=== PATIENT | female | born 1950 | race Caucasian/White ===

== ENCOUNTER 2019-12-06 13:00 | Outpatient (RCR) | payer MEDICARE, SELFPAY ==
[2019-05-01 10:20] VITALS: BMI 37.2
--- NOTE | 2019-09-10 11:59 | HP.PTEVAL ---
Patient's Visit Information KIRIT WILSON is a 68 year old F referred to Physical Therapy by SILVERIO Jenkins with a diagnosis of spondylolisthesis L3L4. Date of Evaluation: 09/10/19 Physical Therapist: Ziggy Pardo, DPT, OCS, CSCS - Visit Plan Frequency: 2-3x /Week Duration: 4-6 Weeks Plan: 2-3x/week fro 4-6 weeks for: NS strengthening of core. rollout and stretch quads and hip flexors and progress to HEP. LB ROM and postural ex. Progress to home gym as able as patient is a member. - Subjective Subjective: Intermittent problems with back. Had L45 fused 2011. Pain has been more frequently in L buttock adn leg lately. Has to stretch before walking. Returned to Dr. Trinity Meza's(surgeons) office. Said the vertebrae above is messed and needs to start with therapy. Gets this pain daily multiple times. Worse standing froma sitting position. Sits in recliner at home. Is comfortable sitting for the most part. Stadning and walking are OK right now. Pain is 8/10 getting up from chair, sitting is OK 0/10. Sleeping is not interrupted, Lying down can be uncomfortable at first on side btu sleeps quickly. Not employed. Spends day putzing around house , sewing, crossstitch. 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 Works out at 3x/week and doing machines and stretches. Basic ADLs are getting done but stadning too long can be painful at [employer] counter. Sitting feels better. - Pain LB and L leg Pain Intensity (Out of 10): 0 Pain Intensity Range: 0, 8 - Objective Walks I and normal, good balance. Trasnfers I without evidence of pain today. steps reciprocal without rail. Bed and chair trasnfers I. LB AROM ext mod limited, flexion mod limited, SB max limited, no pain today. reflexes 2/3 patella and achilles. Sensation WNL to gross light touch in LE. Strength LE 4- hips, 4 knees, 4+ ankles withotu pain- slump and - SLR. quads and hip flexors max tight limiting hip ext B to 4 degrees. L quad tight vs R. Knees are sore on steps from OA - Goals Goal 1:: Pt feel 75% better with 1-2/10 pain at worst. Goal Time Frame: 4-6 Weeks Goal 2:: Pt stadn at counter for chores without increased pain. Goal Time Frame: 4-6 Weeks Goal 3:: I appropr HEP to help manage condition. Goal Time Frame: 4-6 Weeks Goal 4:: Oswestry LB <15% disability. Goal Time Frame: 4-6 Weeks - Rehabilitation Potential Physical Therapy Diagnosis: spondylolisthesis degenerative changes in LB causing pain. Rehabilitation Potential: Good - Anticipated Interventions Patient/Client Instruction: Educate patient on: Condition, Plan of Care For the Purpose of:: To decrease pain, To improve muscle performance and motor function, To increase tolerance to activity/condition/position, To improve ability of physical actions for home/community/work/leisure Therapeutic Exercise to Include: Strength training, Postural training, Flexibilty training, Passive ROM, Active ROM, Dynamic Lumbar Stabilization For the Purpose of:: To decrease pain, To improve nutrient delivery to tissue, To improve muscle performance and motor function, To increase tolerance to activity/condition/position, To improve ability of physical actions for home/community/work/leisure Manual Therapy Techniques to Include: Mobilization Comment: flexion mobs For the Purpose of:: To decrease pain, To increase ROM Thank you for the opportunity to evaluate your patient. For Medicare and Medicare HMO plans, please review the plan of care and approve it. It will need to be FAXED BACK to us at [phone] for Medicare purposes. For Medicare only, by signing this I certify the plan of care. Please let me know if there are questions or concerns regarding this plan of care. Physician Signature: Date:
--- NOTE | 2019-10-02 10:49 | HP.PTREVAL_ITS ---
Ele Shaw, [employer], It has been my pleasure to treat KIRIT WILSON over the last 8 visits for spondylolisthesis L3L4. Please see the progress note below for an update on the physical therapy plan of care! Subjective: Better somewhat. Times with no pain especially in am and when at rest. Walking and going to store can cause it to shoot in butt and leg. Attempts NS position whcih gives some relief. Sleep is good most nights. Frequency is less when it happens and can do a little more. HEP: pelvic tilt, LE rot NWB, DKC. 2x/day Objective/Function: pT PAINFREE AT REST, HAS SLIGHT DISCOMFORT WITH l sb. eXT MOD LIMITED BUT PAINFREE. Flexiona dn R SB Painfree. Hurts after short walk and steps today. Still not focussing on neutral spine in standing/walking adn needs more focus on this which was reviewed with patient today. Continue is appropriate with fair prognosis Plan Plan: 2x/week x 2-3 weeks for ... 1. please give core stabs via HEP, please progress to gym rows, pulldowns, ab, back ext and leg press to add to current program pt was doing prior to back pain. Pt can do her gym workout I prior to or after therapy. PLEASE FOCUS NEUTRAL SPINE THROUGHOUT SESSION IN STANDING. Goals Goal 1:: Pt feel 75% better with 1-2/10 pain at worst. Goal Time Frame: 4-6 Weeks Goal Progress: Progressing Goal 2:: Pt stadn at counter for chores without increased pain. Goal Time Frame: 4-6 Weeks Goal Progress: Slow progression. Goal 3:: I appropr HEP to help manage condition. Goal Time Frame: 4-6 Weeks Goal Progress: Progressing Goal 4:: Oswestry LB <15% disability. Goal Time Frame: 4-6 Weeks Goal Progress: Not Progressing Anticipated Interventions Patient/Client Instruction: Educate patient on: Condition, Plan of Care For the Purpose of:: To decrease pain, To improve muscle performance and motor function, To increase tolerance to activity/condition/position, To improve ability of physical actions for home/community/work/leisure Therapeutic Exercise to Include: Strength training, Postural training, Flexibilty training, Passive ROM, Active ROM, Dynamic Lumbar Stabilization For the Purpose of:: To decrease pain, To improve nutrient delivery to tissue, To improve muscle performance and motor function, To increase tolerance to activity/condition/position, To improve ability of physical actions for home/community/work/leisure Manual Therapy Techniques to Include: Mobilization Comment: flexion mobs For the Purpose of:: To decrease pain, To increase ROM Please do not hesitate to contact me at [phone] by phone or if you have questions or concerns regarding this new plan of care! Sincerely, Ziggy Pardo, DPT, OCS, CSCS
--- NOTE | 2019-10-25 12:22 | HP.PTREVAL ---
Ele Shaw, RANJANA-C, It has been my pleasure to treat KIRIT WILSON over the last 13 visits for spondylolisthesis L3L4. Please see the progress note below for an update on the physical therapy plan of care! Subjective: Sporadic pain up to 7/10. Housework and raking makes her worse. Twisting may bother her. Objective/Function: Pt no better than last week and cannot get in gym regularly due to closure. Has been doing HEP but not as helpful. Appropriate for trial of aquatic therapy for strengtha dn stretch to work to I.Fair prognosis for similar pool goals. Plan Plan: 2x/week x 4 weeks for AT to work on postural, core/NS adn LE sterngtha nd LB ROM to I as member when complete. Pt may do gym ex after pool therapy if desired and makes herself known. Goals Goal 1:: Pt feel 75% better with 1-2/10 pain at worst. Goal Time Frame: 4-6 Weeks Goal Progress: appropriate Goal 2:: Pt stadn at counter for chores without increased pain. Goal Time Frame: 4-6 Weeks Goal Progress: Slow progression.,a pprop Goal 3:: I appropr HEP to help manage condition. Goal Time Frame: 4-6 Weeks Goal Progress: Not Progressing Goal 4:: Oswestry LB <15% disability. Goal Time Frame: 4-6 Weeks Goal Progress: Not Progressing,a pprop Anticipated Interventions Patient/Client Instruction: Educate patient on: Condition, Plan of Care For the Purpose of:: To decrease pain, To improve muscle performance and motor function, To increase tolerance to activity/condition/position, To improve ability of physical actions for home/community/work/leisure Therapeutic Exercise to Include: Strength training, Postural training, Flexibilty training, Passive ROM, Active ROM, Dynamic Lumbar Stabilization For the Purpose of:: To decrease pain, To improve nutrient delivery to tissue, To improve muscle performance and motor function, To increase tolerance to activity/condition/position, To improve ability of physical actions for home/community/work/leisure Manual Therapy Techniques to Include: Mobilization Comment: flexion mobs For the Purpose of:: To decrease pain, To increase ROM Please do not hesitate to contact me at [phone] by phone or if you have questions or concerns regarding this new plan of care! Sincerely, Ziggy Padro, DPT, OCS, CSCS
--- NOTE | 2019-11-21 12:52 | HP.PTREVAL_ITS ---
Ele Shaw, RANJANA-C, It has been my pleasure to treat KIRIT WILSON over the last 21 visits for spondylolisthesis L3L4. Please see the progress note below for an update on the physical therapy plan of care! Subjective: States she's feeling better now, like back to where she was before last week. Objective/Function: Reviewing hip ADD stretch and given as HEP today with instruction in eccentric muscle control. Discussing progresion to I pool program today with [employer] membership. Given her own paper program with review of everything on the sheet. Progressing concepts of neutral spine OUTSIDE of vertical today. Adding sit to stands/squats today with education on good body mechanics with hip hinge and neutral spine. Some difficulty keeping COM over TAJ - cues for appropriate hip hinge for wt distribution. Needing cues for greater abdominal bracing during DLP tasks d/t demo's of LB ext AND reports of increasing pain. Able to relieve this pain by the time pt exited the pool. Demo'ing reduced L glute med. stability with SLS wall push-ups - given LLE SLS glute bracing as HEP. Pt reported understanding. Plan Plan: *f/u with supervising PT directly following today's visit. Would recommend continued AT at this time, with set-back, but recent progress considered. Progressing to I pool program with [employer] membership. Has been given her own paper. *Add hip flexor/quad stretch. *f/u with new HEP Hip ADDuction tasks as well as L glute med strength. *2x/week x 4 weeks for AT to work on postural, core/NS adn LE sterngtha nd LB ROM to I as member when complete. Pt may do gym ex after pool therapy if desired and makes herself known. Goals Goal 1:: Pt feel 75% better with 1-2/10 pain at worst. Goal Time Frame: 4-6 Weeks Goal Progress: appropriate Goal 2:: Pt stadn at counter for chores without increased pain. Goal Time Frame: 4-6 Weeks Goal Progress: Slow progression.,a pprop Goal 3:: I appropr HEP to help manage condition. Goal Time Frame: 4-6 Weeks Goal Progress: Not Progressing Goal 4:: Oswestry LB <15% disability. Goal Time Frame: 4-6 Weeks Goal Progress: Not Progressing,a pprop Anticipated Interventions Patient/Client Instruction: Educate patient on: Condition, Plan of Care For the Purpose of:: To decrease pain, To improve muscle performance and motor function, To increase tolerance to activity/condition/position, To improve ability of physical actions for home/community/work/leisure Therapeutic Exercise to Include: Strength training, Postural training, F lexibilty training, Passive ROM, Active ROM, Dynamic Lumbar Stabilization For the Purpose of:: To decrease pain, To improve nutrient delivery to tissue, To improve muscle performance and motor function, To increase tolerance to activity/condition/position, To improve ability of physical actions for home/community/work/leisure Manual Therapy Techniques to Include: Mobilization Comment: flexion mobs For the Purpose of:: To decrease pain, To increase ROM Please do not hesitate to contact me at [phone] by phone or if you have questions or concerns regarding this new plan of care! Sincerely, Ziggy Pardo, DPT, OCS, CSCS
--- NOTE | 2019-12-06 14:08 | HP.PTDCSUM ---
It has been my pleasure to treat KIRIT WILSON referred by Ele Shaw, RANJANA-C, with the diagnosis of spondylolisthesis L3L4 for a total of 25 visit(s). Discharge Date: Please see the following information for a summary of their discharge status. Subjective: Did well for last two weeks. Did not get back to gym exercises. Plans to continue in pool I and eventually try land ex again when time allows for her. She is noticing times where she actually has no pain whcih is better. Can get rid of pain by adjusting position. usually worse only if she overdoes activity(hanging shutters for long time this past weekend). Was sore that night but hime ajith helped. LB and L leg Pain Intensity (Out of 10): 1 % Improvement: 75 Objective/Function: LB AROM without pain today, still mildly limited in ext but no pain. Walking normal. Overall feeling better adn managing symptoms well. 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 Goal 1:: Pt feel 75% better with 1-2/10 pain at worst. Goal Progress: Goal Met Goal 2:: Pt stadn at counter for chores without increased pain. Goal Progress: Progressing Goal 3:: I appropr HEP to help manage condition. Goal Progress: atul and gym and HEP Goal 4:: Oswestry LB <15% disability. Goal Progress: Not Progressing Goal 5:: I and compliant with gym ex to cotninue strength and NS positioning. Goal Progress: Goal Met Goal 6:: Resume babysit grandchildren without increased pain. Goal Progress: Goal Met Plan: d/c to HEP and pool ex. If there are questions or concerns regarding this patient's physical therapy, please feel free to call me at [phone]. Thank you for the referral of this patient. Sincerely, Ziggy Pardo, DPT, OCS, CSCS
== END 2019-12-06 19:00 | disposition home or self-care (01) ==
LOC: PT 13:00
PROVIDERS: PCP Internal Medicine; Referring Provider Nurse Practitioner Acute Care; Visit Provider Nurse Practitioner Acute Care
DX: M43.16 Spondylolisthesis, lumbar region (principal)
CPT/HCPCS: 97110; 97113; 97162; 97164; 97530

== ENCOUNTER 2020-08-12 14:04 | Outpatient (RCR) | payer MEDICARE, SELFPAY ==
[2019-05-01 10:20] VITALS: BMI 37.2
== END 2020-08-12 23:59 ==
LOC: IMMUN 14:04
PROVIDERS: PCP Internal Medicine; Referring Provider Family Medicine; Visit Provider Family Medicine
DX: Z23 Encounter for immunization (principal)
CPT/HCPCS: 0011A; 0012A; 91301

== ENCOUNTER 2021-08-17 10:43 | Outpatient (CLI) | payer MEDICARE, SELFPAY ==
--- NOTE | 2021-08-17 11:15 | BRBX_PTH ---
PATIENT: KIRIT WILSON LOC: [facility] U#:[id number] AGE/SX: 70/F ROOM: RE08/17/[address]: Dr. Hazel Hernandez MD : [id number] BED: DIS: 08/17/2021 SPEC #: [id number] RECD: 08/17/21 11:51 STATUS: CYNTHIA RE #: [id number] STEF: 08/17/21 11:[address]: Hazel Hernandez DEPT: SURGICAL PATHOLOGY RECD BY: Marissa Lucas ENTERED: 08/17/21 12:48 SP TYPE: BREAST BX OTHR DR: Dr. Maddy Bass MD Tissues: Right breast, NOS Procedures: Surgery Specimen Level IV HEADER OPERATION: Right breast stereotactic biopsy PRE-OP DIAGNOSIS: Right breast calcifications TISSUE SUBMITTED: Right breast core tissue ISCHEMIC TIME: 1 minute FIXATION TIME: 8 hours MICROSCOPIC DIAGNOSIS Right breast, stereotactic core biopsy: Fibrocystic change with associated microcalcifications. No evidence of malignancy. AM:duane 08/18/2021 MICROSCOPIC DESCRIPTION Slides are reviewed. GROSS DESCRIPTION Received in fixative is one container labeled with the patient's name and designated right breast. The specimen consists of multiple elongated fragments of yap-yellow fibroadipose tissue that in aggregate measure 5 x 3 x 0.2 cm. The entire specimen is submitted in two cassettes. / SJ:duane 08/17/2021 TC:5 CPT: 82358
--- NOTE | 2021-08-17 13:12 | OP.PCM_ITS ---
Report of Operation Date of Procedure: 08/17/21 Pre-Operative Diagnosis: abnormal calcifications on right breast mammograms Post-Operative Diagnosis: same Surgery/Procedure Performed:: right stereotactic breast biopsy Surgeon: Hazel Hernandez Type of Anesthesia: Local Specimen's removed: right breast tissue Estimated Blood Loss (mL): minimal Description of Procedure: After informed consent was given, the patient was brought into the Breast Biopsy suite. Appropriate time out protocol was followed. The patient was placed in the prone position on the stereotactic biopsy table. The patient?s right breast was then placed in the opening at the head of the biopsy table. A senior capital markets specialist compression mammogram was then obtained in the CC view. The suspicious radiological lesion was thus identified. Stereo pictures of the lesion were then taken for XYZ coordinates. The Mammotome biopsy stylus was then positioned where it would be entering into the patient?s breast. The skin at this site was then cleansed with a surgical skin preparation. The skin and subcutaneous tissues at this site were then infiltrated with 1% xylocaine. A small skin incision was made with an 11 blade scalpel. The biopsy stylus was then positioned into the patient?s breast at the proper coordinates of depth. Using the Mammotome vacuum-assist device, several core samples of breast tissue were obtained. A specimen mammogram was the obtained. It revealed that the abnormal calcifications were within the specimen. I reviewed this personally and concluded that the tissue sampling was adequate. A hemostatic marker clip was then placed into the biopsy cavity and a senior capital markets specialist film revealed that it was properly deployed. The patient was then placed in the supine position and pressure was applied to the breast until no active bleeding was noted. A nylon suture was placed to reapproximate the skin. Sterile dressing was applied. A unilateral mammogram in the CC and MLO view were then taken which revealed that the marker clip was in the same area as the previous suspicious lesion. The patient tolerated the procedure well and was discharged from the Breast Biopsy suite in good condition. Complications none noted
== END 2021-08-17 23:59 | disposition home or self-care (01) ==
LOC: BIRAD 10:46
PROVIDERS: PCP Internal Medicine; Visit Provider Surgery
DX: R92.8 Other abnormal and inconclusive findings on diagnostic imaging of breast (principal)
CPT/HCPCS: 19081; 88305; J7050

== ENCOUNTER 2022-04-19 10:00 | Outpatient (RCR) | payer MEDICARE, SELFPAY ==
--- NOTE | 2022-03-07 14:18 | HP.PTEVAL ---
Patient's Visit Information KIRIT WILSON is a 71 year old F referred to Physical Therapy by Ele Shaw, RANJANA-Immanuel with a diagnosis of SPONDYLOLISTHESIS AT L3-4 LEVEL ,S/P LUMBAR FUSION. Date of Evaluation: 03/07/22 Physical Therapist: Hood Hackett, PT, Cert MDT, OCS - Visit Plan Frequency: 2x /Week Duration: 6 Weeks Plan: S/P LUMBAR FUSION ,NO BLT 6EEKS AN WEAN FROM BRACE 6WEEKS. PT INTERVETION DLS ,POSTURAL EX' ,LE FLEXABLITY ,HUNCTIONAL STRENGTHNEING AND PROGRESS TO AQUATICS LION AFTER 3 WEEKS - Subjective This 71 y/o female presents to physical therapy with spondylolisthesis at L3-L4 ,S/P lumbar fusion. Patient had lumbar radiculopathy left leg thus under s/p lateral minimal invasive left discectomy and L3-4 extreme lateral left interbody fusion with removal old hardware done Feb [address] Markus Meza at [facility] d/c home next day with lumbar brace . Brace on 6 weeks and remove when resting and no BLT 6 weeks and wean lumbar brace as lion. Start land PT for 3weeks then advance to Aquatic therapy. Patient had 1st surgery 2013 lumbar fusion . Symptoms worse in leg tried PT prior to MRI but showed stenosis and spondylolisthesis/stenosis. No injections. Patient has been doing Aquatic therapy on own prior to surgery. Patient continues to have aggravating factors with sitting , driving ,and extended walking and standing. Alleviating factors rest no MEDS. Bowel/bladder -. Coughing/sneezing-. Denies paresthesia/tingling. Patient does have left knee pain which had injection. Patient sleeping good . Patient goal return to prior level of function walking and ADLS'. SOCIAL: . VOCATION: retired - Pain Left Lower Extremity Pain Intensity (Out of 10): 4 Bilateral Back Pain Intensity (Out of 10): 2 - Objective POSTURE: mild forward posture. GAIT: reciprocal pattern mild forward posture slow miguel. SKIN: incision well approximate crusty distal. NEURO: denies paresthesia/tingling ,reflexes L3-4 ,L4-5 ,L5-S1 1/3 ,ANR. FLEXABLITY: hamstrings WFL. LUMBAR ROM: flexion min/mod ,extension mod/severe , side glides mod tight. . - Special Tests L/S Slump test left side: Negative L/S Slump test right side: Negative L/S Left Straight Leg Raise: Negative L/S Right Straight Leg Raise: Negative - Balance/Special Test Scores Oswestry Low Back Score: 25 - Goals Goal 1:: Patient to be I with HEP and progress to Aquatic therapy Goal Time Frame: 6-8 Weeks Goal 2:: Patient to demonstrate 50% improvement with increase function with less pain Goal Time Frame: 6-8 Weeks Goal 3:: Patient improve lumbar ROM for function of recovery to tie shoes Goal Time Frame: 6-8 Weeks Goal 4:: Patient to return to prior level of function with ADLS and housework tasks with min limitation Goal Time Frame: 6-8 Weeks Goal 5:: Patient to improve back oswesrty score by 5 points to improve function and QOL Goal Time Frame: 6-8 Weeks - Rehabilitation Potential Physical Therapy Diagnosis: This patient underwent s/p lumbar fusion and interbody fusion lateral with pain leg left ,weakness ,decrease ROM thus impairs function and return to prior level of function thus needs skilled PT Rehabilitation Potential: Good - Anticipated Interventions Patient/Client Instruction: Educate patient on: Condition, Plan of Care For the Purpose of:: To decrease pain, To increase ROM, To improve muscle performance and motor function, To improve ability to perform ADL's, To increase tolerance to activity/condition/position, To improve ability of physical actions for home/community/work/leisure, To improve gait and locomotor functions, To increase flexibility/ROM, To improve endurance, To improve balance, To reduce risk of recurrence, To improve tolerance to ADL's Therapeutic Exercise to Include: Strength training, Endurance training, Body mechanics, Postural training, Flexibilty training, Biofeedback, Dynamic Lumbar Stabilization Comment: BLE For the Purpose of:: To decrease pain, To increase ROM, To improve muscle performance and motor function, To improve ability to perform ADL's, To increase tolerance to activity/condition/position, To improve performance and independence with ADL's, To improve ability of physical actions for home/community/work/leisure, To improve health of tissue, To decrease soft tissue restriction, To increase flexibility/ROM, To improve tolerance to ADL's Thank you for the opportunity to evaluate your patient. For Medicare and Medicare HMO plans, please review the plan of care and approve it. It will need to be FAXED BACK to us at [phone] for Medicare purposes. For Medicare only, by signing this I certify the plan of care. Please let me know if there are questions or concerns regarding this plan of care. Physician Signature: Date:
--- NOTE | 2022-03-28 11:33 | HP.PTREVAL ---
Ele Shaw, RANJANA-C, It has been my pleasure to treat KIRIT WILSON over the last 7 visits for SPONDYLOLISTHESIS AT L3-4 LEVEL, S/P LUMBAR FUSION 02/11. Please see the progress note below for an update on the physical therapy plan of care! Subjective: Doing better .less sciatic leg pain . patient would rather Objective/Function: POSTURE: WFL. NEURO: denies paresthesia/tingling. GAIT: reciprocal pattern. MMT: quads/hams/hip 4/5 ,ankle 4/5. LUMBAR ROM: flexion min loss, extension mon/mod loss Plan Plan: S/P LUMBAR FUSION,. PT INTERVETION DLS, POSTURAL EX'S, LE FLEXIBLITY, FUNCTIONAL STRENGTHNEING AND PROGRESS TO AQUATICS [place] AFTER 3 WEEKS Balance/Gait/Functional tests - Balance/Special Test Scores Oswestry Low Back Score: 15 Goals Goal 1:: Patient to be I with HEP and progress to Aquatic therapy Goal Time Frame: 6-8 Weeks Goal 2:: Patient to demonstrate 70% improvement with increase function with less pain( new goal) Goal Time Frame: 6-8 Weeks Goal 3:: Patient improve lumbar ROM for function of recovery to tie shoes Goal Time Frame: 6-8 Weeks Goal Progress: Progressing Goal 4:: Patient to return to prior level of function with ADLS and housework tasks with min limitation Goal Time Frame: 6-8 Weeks Goal Progress: Progressing Goal 5:: Patient to improve back oswesrty score by 5 points to improve function and QOL( new goal) Goal Time Frame: 6-8 Weeks Anticipated Interventions Patient/Client Instruction: Educate patient on: Condition, Plan of Care For the Purpose of:: To decrease pain, To increase ROM, To improve muscle performance and motor function, To improve ability to perform ADL's, To increase tolerance to activity/condition/position, To improve ability of physical actions for home/community/work/leisure, To improve gait and locomotor functions, To increase flexibility/ROM, To improve endurance, To improve balance, To reduce risk of recurrence, To improve tolerance to ADL's Therapeutic Exercise to Include: Strength training, Endurance training, Body mechanics, Postural training, Flexibilty training, Biofeedback, Dynamic Lumbar Stabilization Comment: BLE For the Purpose of:: To decrease pain, To increase ROM, To improve muscle performance and motor function, To improve ability to perform ADL's, To increase tolerance to activity/condition/position, To improve performance and independence with ADL's, To improve ability of physical actions for home/community/work/leisure, To improve health of tissue, To decrease soft tissue restriction, To increase flexibility/ROM, To improve tolerance to ADL's Please do not hesitate to contact me at [phone] by phone or if you have questions or concerns regarding this new plan of care! Sincerely, Hood Hackett, PT, Cert MDT, OCS
--- NOTE | 2022-03-29 12:23 | HP.PTREVAL ---
Ele Shaw, RANJANA-C, It has been my pleasure to treat KIRIT WILSON over the last 7 visits for SPONDYLOLISTHESIS AT L3-4 LEVEL, S/P LUMBAR FUSION 02/11. Please see the progress note below for an update on the physical therapy plan of care! Subjective: Doing better .less sciatic leg pain . patient would rather Objective/Function: POSTURE: WFL. NEURO: denies paresthesia/tingling. GAIT: reciprocal pattern. MMT: quads/hams/hip 4/5 ,ankle 4/5. LUMBAR ROM: flexion min loss, extension mon/mod loss Plan Plan: S/P LUMBAR FUSION,. PT INTERVETION DLS, POSTURAL EX'S, LE FLEXIBLITY, FUNCTIONAL STRENGTHNEING AND GRADED LUMBAR ROM Balance/Gait/Functional tests - Balance/Special Test Scores Oswestry Low Back Score: 15 Goals Goal 1:: Patient to be I with HEP and progress to Aquatic therapy Goal Time Frame: 6-8 Weeks Goal 2:: Patient to demonstrate 70% improvement with increase function with less pain( new goal) Goal Time Frame: 6-8 Weeks Goal 3:: Patient improve lumbar ROM for function of recovery to tie shoes Goal Time Frame: 6-8 Weeks Goal Progress: Progressing Goal 4:: Patient to return to prior level of function with ADLS and housework tasks with min limitation Goal Time Frame: 6-8 Weeks Goal Progress: Progressing Goal 5:: Patient to improve back oswesrty score by 5 points to improve function and QOL( new goal) Goal Time Frame: 6-8 Weeks Anticipated Interventions Patient/Client Instruction: Educate patient on: Condition, Plan of Care For the Purpose of:: To decrease pain, To increase ROM, To improve muscle performance and motor function, To improve ability to perform ADL's, To increase tolerance to activity/condition/position, To improve ability of physical actions for home/community/work/leisure, To improve gait and locomotor functions, To increase flexibility/ROM, To improve endurance, To improve balance, To reduce risk of recurrence, To improve tolerance to ADL's Therapeutic Exercise to Include: Strength training, Endurance training, Body mechanics, Postural training, Flexibilty training, Biofeedback, Dynamic Lumbar Stabilization Comment: BLE For the Purpose of:: To decrease pain, To increase ROM, To improve muscle performance and motor function, To improve ability to perform ADL's, To increase tolerance to activity/condition/position, To improve performance and independence with ADL's, To improve ability of physical actions for home/community/work/leisure, To improve health of tissue, To decrease soft tissue restriction, To increase flexibility/ROM, To improve tolerance to ADL's Please do not hesitate to contact me at [phone] by phone or if you have questions or concerns regarding this new plan of care! Sincerely, Hood Hackett, PT, Cert MDT, OCS
--- NOTE | 2022-06-14 10:18 | HP.PTDCSUM ---
It has been my pleasure to treat KIRIT WILSON referred by Ele Shaw NP-C, with the diagnosis of SPONDYLOLISTHESIS AT L3-4 LEVEL, S/P LUMBAR FUSION 02/11 for a total of 12 visit(s). Discharge Date: 04/19/22 Please see the following information for a summary of their discharge status. Subjective: Doing well ..ready for d/c. Has knee issues causes moblity Left Lower Extremity Pain Intensity (Out of 10): 0 Bilateral Back Pain Intensity (Out of 10): 0 % Improvement: 70 Objective/Function: POSTURE: WFL. GAIT: reciprocal pattern. MMT: quads/hams/hip /ankle 4/5. LUMBAR ROM: lumbar ROM flexion min loss ,extension min loss Goal 1:: Patient to be I with HEP and progress to Aquatic therapy Goal Progress: Goal Met Goal 2:: Patient to demonstrate 70% improvement with increase function with less pain( new goal) Goal Progress: Goal Met Goal 3:: Patient improve lumbar ROM for function of recovery to tie shoes Goal Progress: Goal Met Goal 4:: Patient to return to prior level of function with ADLS and housework tasks with min limitation Goal Progress: Goal Met Goal 5:: Patient to improve back oswesrty score by 5 points to improve function and QOL( new goal) Goal Progress: Goal Met Plan: D/C Discharge Comments: HEP AND GYM If there are questions or concerns regarding this patient's physical therapy, please feel free to call me at [phone]. Thank you for the referral of this patient. Sincerely, Hood Hackett, PT, Cert MDT, OCS Balance/Gait/Functional tests - Balance/Special Test Scores Oswestry Low Back Score: 2
== END 2022-04-19 19:00 | disposition home or self-care (01) ==
LOC: PT 10:00
PROVIDERS: PCP Internal Medicine; Referring Provider Nurse Practitioner Acute Care; Visit Provider Nurse Practitioner Acute Care
DX: M43.16 Spondylolisthesis, lumbar region (principal); Z98.1 Arthrodesis status
CPT/HCPCS: 97110; 97162; 97530

== ENCOUNTER 2023-10-12 10:30 | Outpatient (RCR) | payer MEDICARE, SELFPAY ==
--- NOTE | 2023-08-21 19:26 | HP.PTEVAL_ITS ---
Patient's Visit Information Visit Information Visit Information: KIRIT WILSON is a 72 year old F referred to Physical Therapy by Yas Neil NP-C with a diagnosis of DDD CERVICAL. Date of Evaluation: 08/21/23 Physical Therapist: Hood Hackett, PT, Cert MDT, OCS Visit Plan Frequency: 2x /Week Duration: 4 Weeks Plan: PT INTERVENTIONS CERVICAL ROM ,POSTURAL EX'S ,ICXT 16#-25# X15 MINS ,M ANUAL THERAPY CERVICAL TRACTION/STM /MOBILIZATION C2-7 ,OKAY US/MHP/CP NEEDED Subjective Subjective: This 72 y/o male presents to physical therapy with cervical pain. Patient has had cervical since November 2022. Patient seen [facility] did x-rays showed DDD cervical. Tried prednisone 5 day pack. Try PT. Patient had lumbar surgery in spine fusion patient does water exercises on own. Patient woke up morning and noticed neck . Aggravating factors turning ,looking down and driving to turning. Alleviating rest and biofreeze. Location on right cervical OA > left with cramp /tightness in shoulder. Denies FOFANA associated but get sinus FOFANA,denies nausea /dizziness/nausea. Denies paresthesia/tingling . Patient sleeping good. Patient condition affects QOL and function/housework tasks. Patient goals to decrease pain. SOCIAL: VOCATION: retired Pain Bilateral Neck: Pain Intensity (Out of 10): 3 Pain Intensity Range: 10 Objective Objective: POSTURE: mild forward head ,rounded shoulder PALPATION: tender UT/levator/occiput NEURO: denies paresthesia/tingling ,reflexes 2/3 C5-6-7 BUE: GROSSLY BUE CERVICAL ROM: flexion min loss ,lateral flexion mod/severe right ,left mod ,rotation mod loss right ,left min/mod crepitus ,extension mod loss MMT: BUE grossly 4/5 Special Tests C/S Radiculapathy - Left Upper limb tension test: Negative C/S Radiculapathy - Right Upper limb tension test: Negative C/S Radiculapathy - Left Spurlings: Negative C/S Radiculapathy - Right Spurlings: Negative C/S Radiculapathy - Left Cervical distraction: Negative C/S Radiculapathy - Right Cervical distraction: Negative C/S Radiculapathy - Left Relief test: Negative C/S Radiculapathy - Right Relief test: Negative C/S Radiculapathy - Valsalva: Negative Sharp Micaela: Negative Vertebral Artery Test: Negative Alar Ligament Test: Negative Balance/Special Test Scores Oswestry Neck Score: 18 Goals Goal 1:: I with HEP cervical Goal Time Frame: 4-6 Weeks Goal 2:: Patient to demonstrate 50% improvement with less pain and improved function Goal Time Frame: 4-6 Weeks Goal 3:: Patient to improve cervical ROM for function of recovery to drive car Goal Time Frame: 4-6 Weeks Goal 4:: Patient to improve neck oswestry by 5 points to improve function Goal Time Frame: 4-6 Weeks Rehabilitation Potential Physical Therapy Diagnosis: Patient has cervical pain with crepitus with rotatio n with pain with motion testing and positioning worse with movement to right thus affecting ADLS and housework tasks thus benefit from skilled PT Rehabilitation Potential: Good Anticipated Interventions Patient/Client Instruction: Educate patient on: Condition and Plan of Care For the Purpose of:: To decrease pain, To increase ROM, To improve muscle performance and motor function, To improve ability to perform ADL's, To increase tolerance to activity/condition/position, To improve ability of physical actions for home/community/work/leisure, To improve health of tissue, To decrease soft tissue restriction, To increase flexibility/ROM, To reduce risk of recurrence and To improve tolerance to ADL's Therapeutic Exercise to Include: Strength training, Postural training, Flexibilty training and Active ROM For the Purpose of:: To decrease pain, To increase ROM, To improve nutrient delivery to tissue, To increase oxygenation perfusion, To improve muscle performance and motor function, To increase tolerance to activity/condition/position, To improve ability of physical actions for home/community/work/leisure, To improve health of tissue, To decrease soft tissue restriction and To increase flexibility/ROM Manual Therapy Techniques to Include: Petrissage, Mobilization and Soft tissue mobilization Comment: CERVICAL TRACTION For the Purpose of:: To decrease pain, To increase ROM, To improve muscle performance and motor function, To increase tolerance to activity/condition/position, To improve ability of physical actions for home/community/work/leisure, To improve health of tissue, To decrease soft tissue restriction, To increase flexibility/ROM and To reduce risk of recurrence Thermo therapy (hot pack): Yes Ultrasound (thermal/non thermal): Yes Intermittent cervical traction: Yes (17# -20#) For the Purpose of:: To decrease pain, To increase ROM, To improve nutrient d elivery to tissue, To increase oxygenation perfusion, To improve health of tissue and To decrease soft tissue restriction Text: Thank you for the opportunity to evaluate your patient. For Medicare and Medicare HMO plans, please review the plan of care and approve it. It will need to be FAXED BACK to us at [phone] for Medicare purposes. For Medicare only, by signing this I certify the plan of care. Please let me know if there are questions or concerns regarding this plan of care. Physician Signature: Date:
--- NOTE | 2023-09-22 12:29 | HP.PTREVAL ---
Re-Evaluation Intro: Yas Neil NP-C, It has been my pleasure to treat KIRIT WILSON over the last 10 visits for DDD CERVICAL. Please see the progress note below for an update on the physical therapy plan of care! Subjective Subjective: Traction with machine worse Thus manual therapy was better will d/c ICTX with machine Patient has been progressing but has difficulty turn neck Objective Objective/Function: POSTURE: mild forward head ,rounded shoulder PALPATION: tender UT/levator/occiput NEURO: denies paresthesia/tingling ,reflexes 2/3 C5-6-7 BUE: GROSSLY BUE CERVICAL ROM: flexion WFL ,lateral flexion mod ,left mod ,rotation min/mod loss right ,left min ,extension mod loss MMT: BUE grossly 4/5 Special Tests C/S Radiculapathy - Left Upper limb tension test: Negative C/S Radiculapathy - Right Upper limb tension test: Negative C/S Radiculapathy - Left Spurlings: Negative C/S Radiculapathy - Right Spurlings: Negative C/S Radiculapathy - Left Cervical distraction: Negative C/S Radiculapathy - Right Cervical distraction: Negative C/S Radiculapathy - Left Relief test: Negative C/S Radiculapathy - Right Relief test: Negative C/S Radiculapathy - Valsalva: Negative Sharp Micaela: Negative Vertebral Artery Test: Negative Plan Plan Plan: CONT WITH POC WITH MANUAL THERAPY CERVICAL SPINE PT INTERVENTIONS CERVICAL ROM ,POSTURAL EX'S , ,MANUAL THERAPY CERVICAL TRACTION/STM/MOBILIZATION C2-7 , US/MHP/CP NEEDED Balance/Gait/Functional tests Balance/Special Test Scores Oswestry Neck Score: 15 Goals Goals Goal 1:: I with HEP cervical Goal Time Frame: 4-6 Weeks Goal Progress: Progressing Goal 2:: Patient to demonstrate 70% improvement with less pain and improved function ( NEW GOAL) Goal Time Frame: 4-6 Weeks Goal 3:: Patient to improve cervical ROM for function of recovery to drive car Goal Time Frame: 4-6 Weeks Goal Progress: Progressing Goal 4:: Patient to improve neck oswestry by 5 points to improve function Goal Time Frame: 4-6 Weeks Goal Progress: Progressing Anticipated Interventions Anticipated Interventions Patient/Client Instruction: Educate patient on: Condition and Plan of Care For the Purpose of:: To decrease pain, To increase ROM, To improve muscle performance and motor function, To improve ability to perform ADL's, To increase tolerance to activity/condition/position, To improve ability of physical actions for home/community/work/leisure, To improve health of tissue, To decrease soft tissue restriction, To increase flexibility/ROM, To reduce risk of recurrence and To improve tolerance to ADL's Therapeutic Exercise to Include: Strength training, Postural training, Flexibilty training and Active ROM For the Purpose of:: To decrease pain, To increase ROM, To improve nutrient delivery to tissue, To increase oxygenation perfusion, To improve muscle performance and motor function, To increase tolerance to activity/condition/position, To improve ability of physical actions for home/community/work/leisure, To improve health of tissue, To decrease soft tissue restriction and To increase flexibility/ROM Manual Therapy Techniques to Include: Petrissage, Mobilization and Soft tissue mobilization Comment: CERVICAL TRACTION For the Purpose of:: To decrease pain, To increase ROM, To improve muscle performance and motor function, To increase tolerance to activity/condition/position, To improve ability of physical actions for home/community/work/leisure, To improve health of tissue, To decrease soft tissue restriction, To increase flexibility/ROM and To reduce risk of recurrence Thermo therapy (hot pack): Yes Ultrasound (thermal/non thermal): Yes Intermittent cervical traction: Yes (17# -20#) For the Purpose of:: To decrease pain, To increase ROM, To improve nutrient delivery to tissue, To increase oxygenation perfusion, To improve health of tissue and To decrease soft tissue restriction Re-Evaluation Ending Re-evaluation ending: Please do not hesitate to contact me at [phone] by phone or if you have questions or concerns regarding this new plan of care! Sincerely, Hood Hackett, PT, Cert MDT, OCS
--- NOTE | 2023-10-12 11:11 | HP.PTDCSUM ---
Discharge Summary D/C summary: It has been my pleasure to treat KIRIT WILSON referred by Yas Neil NP-C, with the diagnosis of DDD CERVICAL for a total of 14 visit(s). Discharge Date: Please see the following information for a summary of their discharge status. Subjective Subjective: Doing well Pain Bilateral Neck: Pain Intensity (Out of 10): 0 Overall Improvement % Improvement: 75 Objective Objective/Function: Objective/Function: POSTURE: mild forward head ,rounded shoulder PALPATION: tender UT/levator/occiput NEURO: denies paresthesia/tingling ,reflexes 2/3 C5-6-7 BUE: GROSSLY BUE CERVICAL ROM: flexion WFL ,lateral flexion mod ,left mod ,rotation mn loss right ,left min ,extension min/mod loss MMT: BUE grossly 4/5 Goals Goal 1:: I with HEP cervical Goal Progress: Goal Met Goal 2:: Patient to demonstrate 70% improvement with less pain and improved function ( NEW GOAL) Goal Progress: Goal Met Goal 3:: Patient to improve cervical ROM for function of recovery to drive car Goal Progress: Goal Met Goal 4:: Patient to improve neck oswestry by 5 points to improve function Goal Progress: Goal Met Plan Plan: D/C to HEP D/C Information d/c sentence: If there are questions or concerns regarding this patient's physical therapy, please feel free to call me at [phone]. Thank you for the referral of this patient. Sincerely, Hood Hackett, PT, Cert MDT, OCS Balance/Gait/Functional tests Balance/Special Test Scores Oswestry Neck Score: 4 Improvement % Improvement: 75
== END 2023-10-12 13:47 | disposition home or self-care (01) ==
LOC: PT 10:30
PROVIDERS: PCP Internal Medicine; Referring Provider Nurse Practitioner; Visit Provider Nurse Practitioner
DX: M50.30 Other cervical disc degeneration, unspecified cervical region (principal)
CPT/HCPCS: 97012; 97110; 97140; 97162; 97530

== ENCOUNTER → 2024-10-09 | Outpatient (CLI) | payer MEDICARE, SELFPAY ==
--- NOTE | 2024-10-09 16:00 | MRI_ITS ---
EXAM: MRI LEFT FOOT WITHOUT CONTRAST. CLINICAL HISTORY: PAIN. COMPARISON: NONE. TECHNIQUE: Standardized fat and water weighted pulse sequences were obtained in all 3 orthogonal planes. COMPARISON: None. FINDINGS: Small calcaneal spur formation. Mild changes of plantar fasciitis. Enthesophyte formation at the calcaneal insertion of Achilles tendon. Mild tendinosis of the calcaneal insertional fibers of Achilles tendon. Diffuse soft tissue edema and swelling. Mild tibiotalar joint effusion. Mild subtalar joint effusion. Mild effusion in the sinus tarsus. Mild fat edema in the sinus tarsus. Mild edema of the subtalar ligaments. There is normal signal intensity from visualized bone marrow without evidence of replacement or fracture. No abnormality is seen in the posterior tibialis, flexor digitorum longus tendon and flexor hallucis longus tendon. The peroneus longus and brevis tendons are unremarkable. The tibialis anterior, extensor hallucis longus and extensor digitorum longus tendons are unremarkable. No other abnormality is seen in Achilles tendon and Teno-osseous insertion. Unremarkable plantar fascia. Unremarkable plantar calcaneal tubercles. Normal intrinsic muscles of the rearfoot. No abnormality is seen distal tibiofibular syndesmotic ligamentous complex. No abnormality is seen in lateral ligamentous complex. No abnormality is seen deltoid ligamentous complexes. The plantar calcaneonavicular (spring) ligament is unremarkable. Mild degenerative joint disease of the tibiotalar articulation. Normal talar dome. Mild degenerative joint disease of the subtalar articulations. Mild degenerative joint disease of the talonavicular articulation. Mild degenerative joint disease of the calcaneocuboid articulation. Mild degenerative joint disease of the navicular-cuneiform articulations. MRI/Lower Ext/No Jt/w/o IMPRESSION: Small calcaneal spur formation. Mild changes of plantar fasciitis. Enthesophyte formation at the calcaneal insertion of Achilles tendon. Mild tendinosis of the calcaneal insertional fibers of Achilles tendon. Diffuse soft tissue edema and swelling. Mild tibiotalar joint effusion. Mild subtalar joint effusion. Mild effusion in the sinus tarsus. Mild fat edema in the sinus tarsus. Mild edema of the subtalar ligaments. Reading [facility]
--- NOTE | 2024-10-09 16:00 | MRI_ITS ---
EXAM: MRI RIGHT FOOT WITHOUT CONTRAST. CLINICAL HISTORY: Pain. COMPARISON: None. TECHNIQUE: Standardized fat and water weighted pulse sequences were obtained in all 3 orthogonal planes. COMPARISON: None. FINDINGS: Large calcaneal spur formation. Moderate changes of plantar fasciitis. Associated degenerative reactive edema of the corresponding calcaneal insertion of the plantar aponeurosis. Enthesophyte formation at the calcaneal insertion of Achilles tendon. Mild tendinosis of the calcaneal insertional fibers of Achilles tendon. No associated significant tear of the Achilles tendon. Minimal effusion anterior to the calcaneal insertion of Achilles tendon, probably paratenonitis. Diffuse soft tissue edema and swelling, more prominent in the dorsum of the foot. Mild tibiotalar joint effusion. Mild subtalar joint effusion. Mild effusion in the sinus tarsus. Mild fat edema in the sinus tarsus. Mild edema of the subtalar ligaments. There is normal signal intensity from the remaining visualized bone marrow without evidence of replacement or fracture. No abnormality is seen in the posterior tibialis, flexor digitorum longus tendon and flexor hallucis longus tendon. The peroneus longus and brevis tendons are unremarkable. The tibialis anterior, extensor hallucis longus and extensor digitorum longus tendons are unremarkable. No other abnormality is seen in Achilles tendon and Teno-osseous insertion. Normal intrinsic muscles of the rearfoot. No abnormality is seen distal tibiofibular syndesmotic ligamentous complex. No abnormality is seen in lateral ligamentous complex. No abnormality is seen deltoid ligamentous complexes. The plantar calcaneonavicular (spring) ligament is unremarkable. Mild degenerative joint disease of the tibiotalar articulation. Normal talar dome. Mild degenerative joint disease of the subtalar articulations. Mild degenerative joint disease of the talonavicular articulation. Mild degenerative joint disease of the calcaneocuboid articulation. Mild degenerative joint disease of the navicular-cuneiform articulations. MRI/Lower Ext/No Jt/w/o IMPRESSION: 1. Large calcaneal spur formation. 2. Moderate changes of plantar fasciitis. 3. Associated degenerative reactive edema of the corresponding calcaneal insert ion of the plantar aponeurosis. 4. Enthesophyte formation at the calcaneal insertion of Achilles tendon. 5. Mild tendinosis of the calcaneal insertional fibers of Achilles tendon. 6. No associated significant tear of the Achilles tendon. 7. Minimal effusion anterior to the calcaneal insertion of Achilles tendon, pro bably paratenonitis. 8. Diffuse soft tissue edema and swelling, more prominent in the dorsum of the foot. 9. Mild tibiotalar joint effusion. 10. Mild subtalar joint effusion. 11. Mild effusion in the sinus tarsus. 12. Mild fat edema in the sinus tarsus. 13. Mild edema of the subtalar ligaments. Reading Location: [facility]
== END | disposition home or self-care (01) ==
LOC: MRI 15:48
PROVIDERS: PCP Internal Medicine; Referring Provider Podiatrist; Visit Provider Podiatrist
DX: M77.51 Other enthesopathy of right foot and ankle (principal); M77.52 Other enthesopathy of left foot and ankle
CPT/HCPCS: 73718